=== PATIENT | female | born 1960 | race African-American/Black ===

== ENCOUNTER 2018-01-22 14:49 | Inpatient (IN) | payer OTHER ==
[2018-01-22 17:25] VITALS: BMI 24.7
--- NOTE | 2018-01-23 00:21 | HP ---
COWS - Scale Resting Pulse: 0= [place] 80 or Below Sweatin=Flushed/Facial Moisture Restless Observation: 0= Sits Still Pupil Size: 0= Normal to Room Light Bone or Joint Aches: 4=Acute Joint/Muscle Pain Runny Nose/ Eye Tearin= Runny Nose/Eyes GI Upset > 30mins: 1= Stomach Cramp Tremor Observation: 2= Slight Tremor Visible Yawning Observation: 0= None Anxiety or Irritability: 2=Irritable/Anxious Goose Flesh Skin: 0=Smooth Skin COWS Score: 13 CIWA Score - CIWA Score Nausea/Vomitin-Mild Nausea/No Vomiting Muscle Tremors: 4-Moderate,w/Arms Extend Anxiety: 4-Mod. Anxious/Guarded Agitation: 4-Moderately Restless Paroxysmal Sweats: No Perspiration Orientation: 0-Oriented Tacttile Disturbances: 0-None Auditory Disturbances: 0-None Visual Disturbances: 0-None Headache: 3-Moderate CIWA-Ar Total Score: 16 Admission ROS S - HPI Chief Complaint: Alcohol withdrawal symptoms Allergies/Adverse Reactions: Allergies Allergy/AdvReac Type Severity Reaction Status Date / Time No Known Allergies Allergy Verified 01/22/18 18:32 History of Present Illness: 57 years old female with a long history of alcohol dependence is seeking admission to detox. Patient has never been to detox and this is her first admission to [facility]. She has medical history of HTN, asthma and depression. Denies suicidal attempt and suicidal ideation at this time. Exam Limitations: No Limitations - Ebola screening Have you traveled outside of the country in the last 21 days: No Have you had contact with anyone from an Ebola affected area: No Have you been sick,other than usual withdrawal symptoms: No Do you have a fever: No - Review of Systems Constitutional: Chills, Loss of Appetite, Malaise, Night Sweats, Changes in sleep, Weakness EENT: reports: No Symptoms Reported Respiratory: reports: No Symptoms reported Cardiac: reports: No Symptoms Reported GI: reports: Poor Appetite, Poor Fluid Intake, Abdominal cramping : reports: No Symptoms Reported Musculoskeletal: reports: Back Pain, Muscle Pain Integumentary: reports: Dryness, Flushing Neuro: reports: Tingling, Tremors Endocrine: reports: No Symptoms Reported Hematology: reports: No Symptoms Reported Psychiatric: reports: Anxious, Depressed Patient History - Patient Medical History Hx Asthma: Yes (Not on medication) Hx Chronic Obstructive Pulmonary Disease (COPD): No Hx Cardiac Disorders: No Hx Hypertension: Yes (Not on medication) Hx Seizures: Yes (20 YEARS AGO 2 EPISODES- Not on medication) Hx Dementia: Yes Hx Diabetes: No Hx Gastrointestinal Disorders: No Hx Liver Disease: No Hx Genitourinary Disorders: No Hx Sexually Transmitted Disorders: No Hx Renal Disease (ESRD): No Hx Thyroid Disease: No Hx Human Immunodeficiency Virus (HIV): No Hx Hepatitis C: No Hx Depression: Yes Hx Suicide Attempt: No Hx Bipolar Disorder: No Hx Schizophrenia: No - Patient Surgical History Past Surgical History: No Hx Neurologic Surgery: No Hx Cataract Extraction: No Hx Cardiac Surgery: No Hx Lung Surgery: No Hx Breast Surgery: No Hx Breast Biopsy: No Hx Abdominal Surgery: Yes (HERNIA REPAIR 20YRS AGO) Hx Appendectomy: No Hx Cholecystectomy: No Hx Genitourinary Surgery: No Hx Section: No Hx Orthopedic Surgery: No Anesthesia Reaction: No - PPD History Previous Implant?: Yes Documented Results: Negative w/o proof Implanted On Prior R Admission?: No PPD to be Administered?: Yes - Reproductive History Patient is a Female of Child Bearing Age (11 -55 yrs old): No (Male) Last Menstrual Period: 09/24/15 Patient : No - Smoking Cessation Smoking history: Current every day smoker Have you smoked in the past 12 months: Yes Aproximately how many cigarettes per day: 2 Hx Chewing Tobacco Use: No Initiated information on smoking cessation: Yes 'Breaking Loose' booklet given: 01/23/18 - Substance & Tx. History Hx Alcohol Use: Yes Hx Substance Use: Yes Substance Use Type: Alcohol, Cocaine, Marijuana, Opiates Hx Substance Use Treatment: No (Denies) - Substances Abused Alcohol Route: Oral Frequency: Daily Amount used: 6pk beer, 1/4 pInt Liquer Age of first use: 20 Date of Last Use: 01/21/18 Crack Route: Smoking Frequency: 3-6 times per week Amount used: $100 Age of first use: 32 Date of Last Use: 01/17/18 Heroin Route: Inhalation Frequency: 1-2 times per week Amount used: 2 bags Age of first use: 37 Date of Last Use: 01/19/18 Family Disease History - Family Disease History Family History: Denies Admission Physical Exam BHS - Vital Signs Vital Signs: Vital Signs - 24 hr 01/22/18 17:22 Temperature 97.9 F Pulse Rate 71 Respiratory 20 Rate Blood Pressure 155/96 - Physical General Appearance: Yes: Moderate Distress, Tremorous, Irritable, Anxious HEENTM: Yes: EOMI, Normal ENT Inspection, Normocephalic, Normal Voice, PABLITO Respiratory: Yes: Lungs Clear, Normal Breath Sounds, No Respiratory Distress Neck: Yes: Supple Breast: Yes: Breast Exam Deferred Cardiology: Yes: Regular Rhythm, Regular Rate, S1, S2 Abdominal: Yes: Normal Bowel Sounds, Soft Genitourinary: Yes: Within Normal Limits Back: Yes: Normal Inspection Musculoskeletal: Yes: Back pain, Muscle Pain Extremities: Yes: Tremors Neurological: Yes: Alert, Normal Mood/Affect Integumentary: Yes: Dry Lymphatic: Yes: Within Normal Limits - Diagnostic (1) Alcohol dependence with uncomplicated withdrawal Current Visit: Yes Status: Chronic (2) Cocaine dependence, uncomplicated Current Visit: Yes Status: Chronic (3) Cannabis dependence, uncomplicated Current Visit: Yes Status: Chronic (4) HTN (hypertension) Current Visit: Yes Status: Chronic Qualifiers: Hypertension type: unspecified Qualified Code(s): I10 - Essential (primary ) hypertension (5) Seizure Current Visit: Yes Status: Chronic (6) Depression Current Visit: Yes Status: Chronic (7) Asthma Current Visit: Yes Status: Acute BHS Breath Alcohol Content Breath Alcohol Content: 0 Urine Pregancy Test - Result Urine Test Results: Negative- NO Line Present Urine Drug Screen - Results Drug Screen Negative: No Urine Drug Screen Results: THC-Marijuana, EBONIE-Cocaine, OPI-Opiates, MTD- Methadone
[2018-01-23] MEDS ORDERED: LOPERAMIDE HCL 2 MG CAPSULE PO PRN (00:39)
[2018-01-23] MEDS ORDERED: guaiFENesin/D-METHORPHAN HB 10 ML UNIT-DOSE CUPS PO PRN (00:39)
[2018-01-23] MEDS ORDERED: NICOTINE POLACRILEX 2 MG GUM BC PRN (00:39)
[2018-01-23] MEDS ORDERED: ACETAMINOPHEN 325 MG TABLET (FP) PO PRN (00:39)
[2018-01-23] MEDS ORDERED: MENTHOL/PHENOL 1 EACH UD MM PRN (00:39)
[2018-01-23] MEDS ORDERED: MAG HYDROX/AL HYDROX/SIMETH 30 ML UNIT-DOSE CUP PO PRN (00:39)
[2018-01-23] MEDS ORDERED: P-EPHED 60MG/TRIPROLIDI 2.5MG TABLET PO PRN (00:39)
[2018-01-23] MEDS ORDERED: IBUPROFEN 400 MG TABLET (FP) PO PRN (00:39)
[2018-01-23] MEDS ORDERED: MAGNESIUM CITRATE 300 ML BOTTLE PO PRN (00:39)
[2018-01-23] MEDS ORDERED: MAGNESIUM HYDROX 2400MG/30ML ORAL SUSPENSION 30 ML CUP PO PRN (00:39)
[2018-01-23] MEDS ORDERED: ALBUTEROL SO4 18 GM HFA INHALER IH PRN (00:41)
[2018-01-23] MEDS ORDERED: cloNIDine HCL 0.1 MG TABLET PO ONE (01:22)
[2018-01-23] MEDS: chlordiazePOXIDE HCL 25 MG CAPSULE PO PRN (01:36)
[2018-01-23] MEDS: chlordiazePOXIDE HCL 25 MG CAPSULE PO SCH ×4 (06:47→22:40)
--- NOTE | 2018-01-23 08:47 | EKG ---
Test Reason : Blood Pressure : / mmHG Vent. Rate : 056 BPM Atrial Rate : 056 BPM P-R Int : 124 ms QRS Dur : 084 ms QT Int : 494 ms P-R-T Axes : 069 066 073 degrees QTc Int : 476 ms SINUS BRADYCARDIA WITH SINUS ARRHYTHMIA OTHERWISE NORMAL ECG NO PREVIOUS ECGS AVAILABLE Confirmed by JESSICA LOPEZ, EVELYNE ([id number]) on 01/23/2018 8:46:45 AM Referred By: Confirmed By:EVELYNE LOPEZ MD
[2018-01-23 10:11] LABS: HEMATOCRIT 35.4 % (32.4-45.2); HEMOGLOBIN 11.7 GM/dL (10.7-15.3); MCH 34.1 pg (25.7-33.7); MEAN CELL VOLUME 103.5 fl (80-96); MEAN PLT VOLUME 11.9 fl (7.5-11.1); PLATELET COUNT 141 K/MM3 (134-434); RBC 3.42 M/mm3 (3.60-5.2); RDW 13.2 % (11.6-15.6); WHITE BLOOD COUNT 3.3 K/mm3 (4.0-10.0)
[2018-01-23 10:31] LABS: CHLORIDE 108 mmol/L (98-107); POTASSIUM 4.3 mmol/L (3.5-5.1); SODIUM 142 mmol/L (136-145)
[2018-01-23 10:49] LABS: ALBUMIN 2.6 g/dl (3.4-5.0); ALK PHOS 156 U/L (45-117); ANION GAP 5 (8-16); BILIRUBIN,TOTAL 0.9 mg/dL (0.2-1.0); BLOOD UREA NITROGEN 16 mg/dL (7-18); CALCIUM 8.5 mg/dL (8.5-10.1); CO2 29 mmol/L (21-32); CREATININE 0.9 mg/dL (0.55-1.02); GLUCOSE,RANDOM 90 mg/dL (74-106); SGOT/AST 169 U/L (15-37); SGPT/ALT 98 U/L (12-78); TOT PROT 7.1 g/dl (6.4-8.2)
[2018-01-23] MEDS: NICOTINE 14 MG/24 HOURS TOPICAL PATCH TD SCH (12:43)
[2018-01-23] MEDS: PRENATAL VITAMINS W/ FOLIC ACID TABLET (FP) PO SCH (12:44)
--- NOTE | 2018-01-23 13:38 | PN ---
S CIWA - CIWA Score Nausea/Vomitin Muscle Tremors: 3 Anxiety: 3 Agitation: 2 Paroxysmal Sweats: 1-Minimal Palms Moist Orientation: 0-Oriented Tacttile Disturbances: 1-Very Mild Itch/Numbness Auditory Disturbances: 1-Very Mild Visual Disturbances: 0-None Headache: 2-Mild CIWA-Ar Total Score: 16 S Progress Note (SOAP) Subjective: ALERT,IRRITABLE,ANXIOUS,INTERRUPTED SLEEP,TREMOR Objective: 01/23/18 13:34 Vital Signs Temperature 97.1 F L 01/23/18 09:28 Pulse Rate 81 01/23/18 09:28 Respiratory Rate 16 01/23/18 09:28 Blood Pressure 101/61 01/23/18 09:28 O2 Sat by Pulse Oximetry (%) EKG SINUS BRADYCARDIA 56/MIN QT 494/476 NO CHEST PAIN,NO SOB,NO DIZZINESS Laboratory Last Values WBC 3.3 K/mm3 (4.0-10.0) L 01/23/18 07:50 RBC 3.42 M/mm3 (3.60-5.2) L 01/23/18 07:50 Hgb 11.7 GM/dL (10.7-15.3) 01/23/18 07:50 Hct 35.4 % (32.4-45.2) 01/23/18 07:50 MCV 103.5 fl (80-96) H 01/23/18 07:50 MCH 34.1 pg (25.7-33.7) H 01/23/18 07:50 MCHC 33.0 g/dl (32.0-36.0) 01/23/18 07:50 RDW 13.2 % (11.6-15.6) 01/23/18 07:50 Plt Count 141 K/MM3 (134-434) 01/23/18 07:50 MPV 11.9 fl (7.5-11.1) H 01/23/18 07:50 Sodium 142 mmol/L (136-145) 01/23/18 07:50 Potassium 4.3 mmol/L (3.5-5.1) 01/23/18 07:50 Chloride 108 mmol/L (98-107) H 01/23/18 07:50 Carbon Dioxide 29 mmol/L (21-32) 01/23/18 07:50 Anion Gap 5 (8-16) L 01/23/18 07:50 BUN 16 mg/dL (7-18) 01/23/18 07:50 Creatinine 0.9 mg/dL (0.55-1.02) 01/23/18 07:50 Creat Clearance w eGFR > 60 (>60) 01/23/18 07:50 Random Glucose 90 mg/dL (74-106) 01/23/18 07:50 Calcium 8.5 mg/dL (8.5-10.1) 01/23/18 07:50 Total Bilirubin 0.9 mg/dL (0.2-1.0) 01/23/18 07:50 AST 169 U/L (15-37) H 01/23/18 07:50 ALT 98 U/L (12-78) H 01/23/18 07:50 Alkaline Phosphatase 156 U/L (45-117) H 01/23/18 07:50 Total Protein 7.1 g/dl (6.4-8.2) 01/23/18 07:50 Albumin 2.6 g/dl (3.4-5.0) L 01/23/18 07:50 RPR Titer Nonreactive (NONREACTIVE) 01/23/18 07:50 Assessment: 01/23/18 13:36 WITHDRAWAL SYMPTOM Plan: CONTINUE DETOX,D/C TYLENOL FOR ELEVATION OF ALT AST
[2018-01-23] MEDS ORDERED: MELATONIN 5 MG TABLETS PO PRN (22:00)
[2018-01-23] MEDS: THIAMINE HCL 100 MG TABLET (FP) PO SCH (22:40)
[2018-01-24] MEDS: chlordiazePOXIDE HCL 25 MG CAPSULE PO SCH ×4 (05:48→22:20)
--- NOTE | 2018-01-24 08:36 | PN ---
S CIWA - CIWA Score Nausea/Vomitin Muscle Tremors: 3 Anxiety: 3 Agitation: 2 Paroxysmal Sweats: 1-Minimal Palms Moist Orientation: 0-Oriented Tacttile Disturbances: 1-Very Mild Itch/Numbness Auditory Disturbances: 1-Very Mild Visual Disturbances: 0-None Headache: 2-Mild CIWA-Ar Total Score: 16 BHS Progress Note (SOAP) Subjective: alert,irritable,anxious,interrupted sleep,pain in the body and back Objective: 01/24/18 08:31 Vital Signs Temperature 97.7 F 01/24/18 07:56 Pulse Rate 59 L 01/24/18 07:56 Respiratory Rate 20 01/24/18 07:56 Blood Pressure 141/89 01/24/18 07:56 O2 Sat by Pulse Oximetry (%) Laboratory Last Values WBC 3.3 K/mm3 (4.0-10.0) L 01/23/18 07:50 RBC 3.42 M/mm3 (3.60-5.2) L 01/23/18 07:50 Hgb 11.7 GM/dL (10.7-15.3) 01/23/18 07:50 Hct 35.4 % (32.4-45.2) 01/23/18 07:50 MCV 103.5 fl (80-96) H 01/23/18 07:50 MCH 34.1 pg (25.7-33.7) H 01/23/18 07:50 MCHC 33.0 g/dl (32.0-36.0) 01/23/18 07:50 RDW 13.2 % (11.6-15.6) 01/23/18 07:50 Plt Count 141 K/MM3 (134-434) 01/23/18 07:50 MPV 11.9 fl (7.5-11.1) H 01/23/18 07:50 Sodium 142 mmol/L (136-145) 01/23/18 07:50 Potassium 4.3 mmol/L (3.5-5.1) 01/23/18 07:50 Chloride 108 mmol/L (98-107) H 01/23/18 07:50 Carbon Dioxide 29 mmol/L (21-32) 01/23/18 07:50 Anion Gap 5 (8-16) L 01/23/18 07:50 BUN 16 mg/dL (7-18) 01/23/18 07:50 Creatinine 0.9 mg/dL (0.55-1.02) 01/23/18 07:50 Creat Clearance w eGFR > 60 (>60) 01/23/18 07:50 Random Glucose 90 mg/dL (74-106) 01/23/18 07:50 Calcium 8.5 mg/dL (8.5-10.1) 01/23/18 07:50 Total Bilirubin 0.9 mg/dL (0.2-1.0) 01/23/18 07:50 AST 169 U/L (15-37) H 01/23/18 07:50 ALT 98 U/L (12-78) H 01/23/18 07:50 Alkaline Phosphatase 156 U/L (45-117) H 01/23/18 07:50 Total Protein 7.1 g/dl (6.4-8.2) 01/23/18 07:50 Albumin 2.6 g/dl (3.4-5.0) L 01/23/18 07:50 RPR Titer Nonreactive (NONREACTIVE) 01/23/18 07:50 Assessment: 01/24/18 08:32 withdrawal symptom unable to verify methadone dose for her program Plan: continue detox,will give methadone 20 mgs po today and 20 mgs po on thu01/25/18 ,to verify with her program on 01/26/18
[2018-01-24] MEDS ORDERED: METHADONE HCL 10 MG TABLET PO ONE (08:37)
[2018-01-24] MEDS: PRENATAL VITAMINS W/ FOLIC ACID TABLET (FP) PO SCH (10:23)
[2018-01-24] MEDS: chlordiazePOXIDE HCL 25 MG CAPSULE PO PRN (10:24)
[2018-01-24] MEDS: NICOTINE 14 MG/24 HOURS TOPICAL PATCH TD SCH (10:26)
[2018-01-24] MEDS: THIAMINE HCL 100 MG TABLET (FP) PO SCH (22:20)
[2018-01-25] MEDS ORDERED: METHADONE HCL 10 MG TABLET PO ONE (06:00)
[2018-01-25] MEDS: chlordiazePOXIDE 5 MG CAPSULE PO SCH ×4 (06:18→22:16)
[2018-01-25] MEDS: PRENATAL VITAMINS W/ FOLIC ACID TABLET (FP) PO SCH (10:36)
[2018-01-25] MEDS: NICOTINE 14 MG/24 HOURS TOPICAL PATCH TD SCH (10:36)
--- NOTE | 2018-01-25 13:50 | PN ---
S Progress Note (SOAP) Subjective: ALERT,IRRITABLE,ANXIOUS,INTERRUPTED SLEEP Objective: 01/25/18 13:48 Vital Signs Temperature 97.7 F 01/25/18 09:37 Pulse Rate 58 L 01/25/18 09:37 Respiratory Rate 18 01/25/18 09:37 Blood Pressure 112/60 01/25/18 09:37 O2 Sat by Pulse Oximetry (%) Assessment: 01/25/18 13:49 WITHDRAWAL SYMPTOM Plan: CONTINUE DETOX,DISCHARGE IN AM
[2018-01-25 21:45] VITALS: TEMP 98.1
[2018-01-25] MEDS: THIAMINE HCL 100 MG TABLET (FP) PO SCH (22:16)
[2018-01-26] MEDS ORDERED: chlordiazePOXIDE HCL 10 MG CAPSULE PO SCH (05:00)
[2018-01-26 06:07] VITALS: BP 154/72; PULSE 77
[2018-01-26] MEDS ORDERED: METHADONE HCL 10 MG TABLET PO ONE (08:18)
[2018-01-26] MEDS ORDERED: METHADONE 30 MG, METHADONE 5 MG PO ONE (08:30)
[2018-01-26] MEDS ORDERED: METHADONE HCL 5 MG TABLET ONE (08:39)
[2018-01-26] MEDS ORDERED: METHADONE HCL 10 MG TABLET ONE (08:39)
--- NOTE | 2018-01-26 08:51 | DS ---
[facility] Detox Discharge Summary Admission Date: 01/22/18 Discharge Date: 01/26/18 - History Present History: Alcohol Dependence Additional Comments: 57 years old female admitted 01/22/18 for alcohol withdrawal sx completed alcohol detox regimen tolerated well denies alcohol withdrawal sx alert oriented x 3 methadone verified today on 35 mg po daily agrees [facility] teaching on alcohol related liver diseases - Physical Exam Results Vital Signs: Vital Signs Temperature 98.1 F 01/26/18 06:00 Pulse Rate 77 01/26/18 06:00 Respiratory Rate 18 01/26/18 06:00 Blood Pressure 154/72 01/26/18 06:00 O2 Sat by Pulse Oximetry (%) Pertinent Admission Physical Exam Findings: withdrawal sx Vital Signs Temperature 98.1 F 01/26/18 06:00 Pulse Rate 77 01/26/18 06:00 Respiratory Rate 18 01/26/18 06:00 Blood Pressure 154/72 01/26/18 06:00 O2 Sat by Pulse Oximetry (%) Laboratory Last Values WBC 3.3 K/mm3 (4.0-10.0) L 01/23/18 07:50 RBC 3.42 M/mm3 (3.60-5.2) L 01/23/18 07:50 Hgb 11.7 GM/dL (10.7-15.3) 01/23/18 07:50 Hct 35.4 % (32.4-45.2) 01/23/18 07:50 MCV 103.5 fl (80-96) H 01/23/18 07:50 MCH 34.1 pg (25.7-33.7) H 01/23/18 07:50 MCHC 33.0 g/dl (32.0-36.0) 01/23/18 07:50 RDW 13.2 % (11.6-15.6) 01/23/18 07:50 Plt Count 141 K/MM3 (134-434) 01/23/18 07:50 MPV 11.9 fl (7.5-11.1) H 01/23/18 07:50 Sodium 142 mmol/L (136-145) 01/23/18 07:50 Potassium 4.3 mmol/L (3.5-5.1) 01/23/18 07:50 Chloride 108 mmol/L (98-107) H 01/23/18 07:50 Carbon Dioxide 29 mmol/L (21-32) 01/23/18 07:50 Anion Gap 5 (8-16) L 01/23/18 07:50 BUN 16 mg/dL (7-18) 01/23/18 07:50 Creatinine 0.9 mg/dL (0.55-1.02) 01/23/18 07:50 Creat Clearance w eGFR > 60 (>60) 01/23/18 07:50 Random Glucose 90 mg/dL (74-106) 01/23/18 07:50 Calcium 8.5 mg/dL (8.5-10.1) 01/23/18 07:50 Total Bilirubin 0.9 mg/dL (0.2-1.0) 01/23/18 07:50 AST 169 U/L (15-37) H 01/23/18 07:50 ALT 98 U/L (12-78) H 01/23/18 07:50 Alkaline Phosphatase 156 U/L (45-117) H 01/23/18 07:50 Total Protein 7.1 g/dl (6.4-8.2) 01/23/18 07:50 Albumin 2.6 g/dl (3.4-5.0) L 01/23/18 07:50 RPR Titer Nonreactive (NONREACTIVE) 01/23/18 07:50 lab noted AST and ALT elevation - Treatment Hospital Course: Detox Protocol Followed, Detoxed Safely, Responded well, Discharged Condition Good, Rehab Referral Accepted Patient has Accepted [facility] Referral [facility] - Medication Discharge Medications: Ambulatory Orders Clonidine HCl 0.3 mg PO DAILY 01/22/18 Albuterol Sulfate Inhaler - [Ventolin HFA Inhaler -] 2 puff IH PRN PRN #1 inhaler 01/26/18 Methadone [Dolophine -] 35 mg PO DAILY 01/26/18 - Diagnosis (1) Asthma Status: Chronic Qualifiers: Asthma severity: mild Asthma persistence: intermittent Asthma complication type: with status asthmaticus Qualified Code(s): J45.22 - Mild intermittent asthma with status asthmaticus (2) Methadone maintenance therapy patient Status: Chronic (3) Alcohol dependence with uncomplicated withdrawal Status: Acute (4) HTN (hypertension) Status: Chronic Qualifiers: Hypertension type: essential hypertension Qualified Code(s): I10 - Essential (primary) hypertension - AMA Did Patient Leave Against Medical Advice: No
[2018-01-26] MEDS ORDERED: cloNIDine HCL 0.1 MG TABLET PO PRN (09:02)
[2018-01-26] MEDS: NICOTINE 14 MG/24 HOURS TOPICAL PATCH TD SCH (09:46)
[2018-01-26] MEDS: PRENATAL VITAMINS W/ FOLIC ACID TABLET (FP) PO SCH (09:46)
[2018-01-26 14:17] LABS: URINE APPEARANCE SLCLOUDY; URINE BILIRUBIN NEGATIVE (<2.0 mg/dL); URINE COLOR YELLOW; URINE GLUCOSE (UA) NEGATIVE (NEGATIVE); URINE KETONE NEGATIVE (NEGATIVE); URINE LEUK ESTERASE NEGATIVE (NEGATIVE); URINE NITRITE NEGATIVE (NEGATIVE); URINE PROTEIN NEGATIVE (NEGATIVE)
== END 2018-01-26 09:50 | disposition home or self-care (01) | DRG 773 ==
LOC: YASAS 14:49 → Y6N 23:33
PROVIDERS: ADMIT Surgery; ATTEND Surgery
PROC: HZ2ZZZZ Detoxification Services for Substance Abuse Treatment (ICD-10-PCS; principal; 2018-01-22)
DX: F11.20 Opioid dependence, uncomplicated (principal); F10.230 Alcohol dependence with withdrawal, uncomplicated; F14.20 Cocaine dependence, uncomplicated; F12.20 Cannabis dependence, uncomplicated; F32.9 Major depressive disorder, single episode, unspecified; I10 Essential (primary) hypertension; J45.22 Mild intermittent asthma with status asthmaticus; Z86.69 Personal history of other diseases of the nervous system and sense organs
CPT/HCPCS: 36415; 71046-TC-FY; 80053; 81003; 85027; 86593; 93005; 93010; J0735

== ENCOUNTER 2018-09-21 17:41 | Inpatient (IN) | payer OTHER ==
[2018-09-21 19:09] VITALS: BMI 23.4
--- NOTE | 2018-09-21 20:34 | HP ---
COWS - Scale Resting Pulse: 0= [place] 80 or Below Sweatin=Flushed/Facial Moisture Restless Observation: 0= Sits Still Pupil Size: 0= Normal to Room Light Bone or Joint Aches: 4=Acute Joint/Muscle Pain Runny Nose/ Eye Tearin= Runny Nose/Eyes GI Upset > 30mins: 3= Vomiting/Diarrhea (vomiting x 2, diarrhea x 3) Tremor Observation: 2= Slight Tremor Visible Yawning Observation: 0= None Anxiety or Irritability: 2=Irritable/Anxious Goose Flesh Skin: 0=Smooth Skin COWS Score: 15 CIWA Score Nausea/Vomitin (vomiting x 2) Muscle Tremors: 3 Anxiety: 3 Agitation: 3 Paroxysmal Sweats: 2 Orientation: 0-Oriented Tacttile Disturbances: 0-None Auditory Disturbances: 0-None Visual Disturbances: 0-None Headache: 2-Mild CIWA-Ar Total Score: 16 - Admission Criteria [facility] Guidelines: Admission for Medically Managed Detox: Requires at least one of the followin. CIWA greater than 12 2. Seizures within the past 24 hours 3. Delirium tremens within the past 24 hours 4. Hallucinations within the past 24 hours 5. Acute intervention needed for co occurring medical disorder 6. Acute intervention needed for co occurring psychiatric disorder 7. Severe withdrawal that cannot be handled at a lower level of care (continued vomiting, continued diarrhea, abnormal vital signs) requiring intravenous medication and/or fluids 8. Admission ROS [facility] Chief Complaint: Heroin and alcohol withdrawal symptoms Allergies/Adverse Reactions: Allergies Allergy/AdvReac Type Severity Reaction Status Date / Time No Known Allergies Allergy Verified 01/22/18 18:32 History of Present Illness: 58 years old female with a long history of heroine and alcohol dependence is seeking admission to detox. Patient has been to previous detox at [facility]. She has medical history of hypertension, asthma and depression. She denies suicide attempt and suicidal ideation at this time. Patient reports seven years of sobriety. Exam Limitations: No Limitations - Ebola screening Have you traveled outside of the country in the last 21 days: No Have you had contact with anyone from an Ebola affected area: No Have you been sick,other than usual withdrawal symptoms: No Do you have a fever: No - Review of Systems Constitutional: Chills, Loss of Appetite, Malaise, Changes in sleep EENT: reports: Recent change in vision, Sinus Pressure Respiratory: reports: No Symptoms reported Cardiac: reports: No Symptoms Reported GI: reports: Diarrhea (x 3), Nausea, Poor Appetite, Poor Fluid Intake, Vomiting (x 2), Abdominal cramping : reports: No Symptoms Reported Musculoskeletal: reports: Back Pain, Joint Pain, Muscle Pain Integumentary: reports: Dryness, Flushing Neuro: reports: Headache, Tremors Hematology: reports: No Symptoms Reported Psychiatric: reports: Mood/Affect Appropiate, Orientated x3 Other Systems: Reviewed and Negative Patient History - Patient Medical History Hx Asthma: Yes (Not on medication) Hx Chronic Obstructive Pulmonary Disease (COPD): No Hx Cardiac Disorders: No Hx Hypertension: Yes (Not on medication) Hx Seizures: Yes (20 YEARS AGO 2 EPISODES- Not on medication) Hx Dementia: No Hx Diabetes: No Hx Gastrointestinal Disorders: No Hx Liver Disease: No Hx Genitourinary Disorders: No Hx Sexually Transmitted Disorders: No Hx Renal Disease (ESRD): No Hx Thyroid Disease: No Hx Human Immunodeficiency Virus (HIV): No Hx Hepatitis C: No Hx Depression: Yes (Not on medication) Hx Suicide Attempt: No Hx Bipolar Disorder: No Hx Schizophrenia: No - Patient Surgical History Past Surgical History: No Hx Neurologic Surgery: No Hx Cataract Extraction: No Hx Cardiac Surgery: No Hx Lung Surgery: No Hx Breast Surgery: No Hx Breast Biopsy: No Hx Abdominal Surgery: Yes (HERNIA REPAIR 20YRS AGO) Hx Appendectomy: No Hx Cholecystectomy: No Hx Genitourinary Surgery: No Hx Section: No Hx Orthopedic Surgery: No Anesthesia Reaction: No - PPD History Previous Implant?: Yes Documented Results: Negative w/o proof Implanted On Prior [facility] Admission?: No PPD to be Administered?: Yes - Reproductive History Patient is a Female of Child Bearing Age (11 -55 yrs old): Yes Last Menstrual Period: 09/24/15 LMP comment: Menopausal Patient : No - Smoking Cessation Smoking history: Current every day smoker Have you smoked in the past 12 months: Yes Aproximately how many cigarettes per day: 2 Hx Chewing Tobacco Use: No Initiated information on smoking cessation: Yes 'Breaking Loose' booklet given: 09/21/18 - Substance & Tx. History Hx Alcohol Use: No Hx Substance Use: Yes Substance Use Type: Heroin Hx Substance Use Treatment: Yes ([facility]) - Substances Abused Heroin Route: Inhalation Frequency: Daily Amount used: 5 bags daily Age of first use: 27 Date of Last Use: 09/20/18 Cocaine Route: Smoking Frequency: Daily Amount used: $10 Age of first use: 35 Date of Last Use: 09/20/18 Alcohol Route: Oral Frequency: Daily Amount used: Aniyah - 2 Lou Age of first use: 13 Date of Last Use: 09/21/18 Family Disease History - Family Disease History Family History: Denies Admission Physical Exam [facility] - Vital Signs Vital Signs: Vital Signs - 24 hr 09/21/18 19:05 Temperature 97.8 F Pulse Rate 72 Respiratory 18 Rate Blood Pressure 150/90 - Physical General Appearance: Yes: Moderate Distress, Tremorous, Irritable, Sweating, Anxious HEENTM: Yes: Nasal Congestion Respiratory: Yes: Lungs Clear, Normal Breath Sounds, No Respiratory Distress Neck: Yes: Supple Breast: Yes: Breast Exam Deferred Cardiology: Yes: Regular Rhythm, Regular Rate Abdominal: Yes: Within Normal Limits Genitourinary: Yes: Within Normal Limits Musculoskeletal: Yes: Back pain Extremities: Yes: Tremors Neurological: Yes: operations developer II-XII NML intact, Alert, Normal Mood/Affect Integumentary: Yes: Warm Lymphatic: Yes: Within Normal Limits - Diagnostic (1) Alcohol dependence with uncomplicated withdrawal Current Visit: Yes Status: Chronic (2) Asthma Current Visit: Yes Status: Chronic Qualifiers: Asthma severity: mild Asthma persistence: intermittent Asthma complication type: with status asthmaticus Qualified Code(s): J45.22 - Mild intermittent asthma with status asthmaticus (3) Cannabis dependence, uncomplicated Current Visit: Yes Status: Chronic (4) Cocaine dependence, uncomplicated Current Visit: Yes Status: Chronic (5) Depression Current Visit: Yes Status: Chronic Qualifiers: Depression Type: unspecified Qualified Code(s): F32.9 - Major depressive disorder, single episode, unspecified (6) HTN (hypertension) Current Visit: Yes Status: Chronic Qualifiers: Hypertension type: essential hypertension Qualified Code(s): I10 - Essential (primary) hypertension Cleared for Admission [facility] - Detox or Rehab [facility] Level of Care: Medically Managed Detox Regimen/Protocol: Methadone/Librium [facility] Breath Alcohol Content Breath Alcohol Content: 0.021 Urine Pregancy Test - Result Urine Test Results: Negative- NO Line Present Urine Drug Screen - Results Urine Drug Screen Results: THC-Marijuana, EBONIE-Cocaine, OPI-Opiates, FEN-Fentanyl
[2018-09-21] MEDS ORDERED: MAGNESIUM HYDROX 2400MG/30ML ORAL SUSPENSION 30 ML CUP PO PRN (20:47)
[2018-09-21] MEDS ORDERED: IBUPROFEN 400 MG TABLET (FP) PO PRN (20:47)
[2018-09-21] MEDS ORDERED: MAG HYDROX/AL HYDROX/SIMETH 30 ML UNIT-DOSE CUP PO PRN (20:47)
[2018-09-21] MEDS ORDERED: METHADONE HCL 10 MG TABLET (FOR DETOX USE ONLY) PO ONE ×4 (20:47→23:00)
[2018-09-21] MEDS ORDERED: guaiFENesin/D-METHORPHAN HB 10 ML UNIT-DOSE CUPS PO PRN (20:47)
[2018-09-21] MEDS ORDERED: NICOTINE POLACRILEX 2 MG GUM BC PRN (20:47)
[2018-09-21] MEDS ORDERED: diazePAM 5 MG TABLET PO PRN (20:47)
[2018-09-21] MEDS ORDERED: ACETAMINOPHEN 325 MG TABLET (FP) PO PRN (20:47)
[2018-09-21] MEDS ORDERED: P-EPHED 60MG/TRIPROLIDI 2.5MG TABLET PO PRN (20:47)
[2018-09-21] MEDS ORDERED: LOPERAMIDE HCL 2 MG CAPSULE PO PRN (20:47)
[2018-09-21] MEDS ORDERED: MAGNESIUM CITRATE 300 ML BOTTLE PO PRN (20:47)
[2018-09-21] MEDS ORDERED: MENTHOL/PHENOL 1 EACH UD MM PRN (20:47)
[2018-09-21] MEDS ORDERED: ALBUTEROL SO4 8 GM HFA INHALER IH PRN (20:49)
[2018-09-21] MEDS ORDERED: chlordiazePOXIDE HCL 25 MG CAPSULE PO PRN (21:44)
[2018-09-21] MEDS ORDERED: MELATONIN 5 MG TABLETS PO PRN (22:00)
[2018-09-21] MEDS: chlordiazePOXIDE HCL 25 MG CAPSULE PO SCH (23:17)
[2018-09-21] MEDS: THIAMINE HCL 100 MG TABLET (FP) PO SCH (23:22)
[2018-09-22] MEDS: chlordiazePOXIDE HCL 25 MG CAPSULE PO SCH ×3 (06:36→17:15)
[2018-09-22] MEDS ORDERED: METHADONE HCL 10 MG TABLET (FOR DETOX USE ONLY) PO SCH (10:00)
[2018-09-22] MEDS ORDERED: NICOTINE 14 MG/24 HOURS TOPICAL PATCH TD SCH (10:00)
[2018-09-22] MEDS ORDERED: PRENATAL VITAMINS W/ FOLIC ACID TABLET (FP) PO SCH (10:00)
[2018-09-22] MEDS ORDERED: METHADONE HCL 10 MG TABLET (FOR DETOX USE ONLY) PO ONE (10:00)
[2018-09-22 10:34] LABS: HEMATOCRIT 32.7 % (32.4-45.2); HEMOGLOBIN 11.3 GM/dL (10.7-15.3); MCH 34.6 pg (25.7-33.7); MCHC 34.5 g/dl (32.0-36.0); MEAN CELL VOLUME 100.2 fl (80-96); MEAN PLT VOLUME 10.4 fl (7.5-11.1); PLATELET COUNT 214 K/MM3 (134-434); RBC 3.27 M/mm3 (3.60-5.2); RDW 12.3 % (11.6-15.6); WHITE BLOOD COUNT 3.3 K/mm3 (4.0-10.0)
[2018-09-22 10:49] LABS: ALBUMIN 2.5 g/dl (3.4-5.0); ALK PHOS 117 U/L (45-117); ANION GAP 7 MMOL/L (8-16); BILIRUBIN,TOTAL 0.3 mg/dL (0.2-1); BLOOD UREA NITROGEN 12 mg/dL (7-18); CALCIUM 8.6 mg/dL (8.5-10.1); CHLORIDE 108 mmol/L (98-107); CO2 28 mmol/L (21-32); CREATININE 0.7 mg/dL (0.55-1.3); GLUCOSE,RANDOM 90 mg/dL (74-106); POTASSIUM 3.7 mmol/L (3.5-5.1); SGOT/AST 65 U/L (15-37); SGPT/ALT 50 U/L (13-61); SODIUM 143 mmol/L (136-145); TOT PROT 6.4 g/dl (6.4-8.2)
--- NOTE | 2018-09-22 15:43 | PN ---
[facility] CIWA - CIWA Score Nausea/Vomitin-No Nausea/No Vomiting Muscle Tremors: 4-Moderate,w/Arms Extend Anxiety: 3 Agitation: 3 Paroxysmal Sweats: 3 Orientation: 0-Oriented Tacttile Disturbances: 0-None Auditory Disturbances: 0-None Visual Disturbances: 0-None Headache: 0-None Present CIWA-Ar Total Score: 13 [facility] COWS - Scale Resting Pulse: 0= [place] 80 or Below Sweatin= Chills/Flushing Restless Observation: 0= Sits Still Pupil Size: 0= Normal to Room Light Bone or Joint Aches: 2= Severe Diffuse Aches Runny Nose/ Eye Tearin= Nasal Congestion GI Upset > 30mins: 0= None Tremor Observation of Outstretched Hands: 2= Slight Tremor Visible Yawning Observation: 2= >3x During Session Anxiety or Irritability: 2=Irritable/Anxious Goose Flesh Skin: 0=Smooth Skin COWS Score: 10 S Progress Note (SOAP) Subjective: irritable agitation tired sweats Objective: 09/22/18 15:41 Vital Signs Temperature 98.4 F 09/22/18 13:40 Pulse Rate 73 09/22/18 14:58 Respiratory Rate 18 09/22/18 14:00 Blood Pressure 148/84 09/22/18 13:40 O2 Sat by Pulse Oximetry (%) Laboratory Tests 09/22/18 09/22/18 09/22/18 07:00 07:00 07:00 WBC 3.3 L RBC 3.27 L Hgb 11.3 Hct 32.7 MCV 100.2 H MCH 34.6 H MCHC 34.5 RDW 12.3 Plt Count 214 D MPV 10.4 D Sodium 143 Potassium 3.7 Chloride 108 H Carbon Dioxide 28 Anion Gap 7 L BUN 12 Creatinine 0.7 Creat Clearance w eGFR > 60 Random Glucose 90 Calcium 8.6 Total Bilirubin 0.3 AST 65 H ALT 50 Alkaline Phosphatase 117 Total Protein 6.4 Albumin 2.5 L RPR Titer Nonreactive HIV 1&2 Antibody Screen HIV P24 Antigen 09/22/18 07:00 WBC RBC Hgb Hct MCV MCH MCHC RDW Plt Count MPV Sodium Potassium Chloride Carbon Dioxide Anion Gap BUN Creatinine Creat Clearance w eGFR Random Glucose Calcium Total Bilirubin AST ALT Alkaline Phosphatase Total Protein Albumin RPR Titer HIV 1&2 Antibody Screen Negative HIV P24 Antigen Preliminary positive labs noted HIV preliminary positive result noted; confirmatory result pending will contact [facility] for consultation in the am. Assessment: 09/22/18 15:43 withdrawal sx Plan: continue detox increase fluids
[2018-09-22 17:19] VITALS: BP 151/77; TEMP 98.2
[2018-09-22] MEDS: THIAMINE HCL 100 MG TABLET (FP) PO SCH (22:32)
[2018-09-22] MEDS ORDERED: chlordiazePOXIDE HCL 25 MG CAPSULE PO SCH (23:00)
[2018-09-22 23:24] VITALS: PULSE 71
--- NOTE | 2018-09-23 09:32 | PN ---
[facility] Progress Note Note: Pt was no longer on the unit this am d/t overnight issues. [employer] Hatchery Supervisor now is unable to get in contact of pt via phone provided to ask pt to have her come back regarding recent lab results. will try another method.
[2018-09-23] MEDS ORDERED: METHADONE HCL 5 MG TABLET (FOR DETOX USE ONLY) PO ONE (10:00)
[2018-09-23] MEDS ORDERED: METHADONE HCL 5 MG TABLET (FOR DETOX USE ONLY) PO SCH (10:00)
--- NOTE | 2018-09-23 14:10 | PN ---
[facility] Progress Note Note: consultation was made with Snow Alvarado from the [facility] regarding steps to follow to try to reach out to this patient regarding recent lab results. 1. called can be made which it was by tech writer; no answer phone rings then it cuts off or 2. letter can be sent to address on file stating only general statement to get patient back to our facility to discuss abnormal lab results. This was approach was also discussed with Dr. Bergman and also consulted with Sophia Ray and both agreed on the approach. Will follow up with plan.
[2018-09-23] MEDS ORDERED: chlordiazePOXIDE 5 MG CAPSULE PO SCH (23:00)
[2018-09-24] MEDS ORDERED: METHADONE HCL 5 MG TABLET (FOR DETOX USE ONLY) PO ONE (10:00)
[2018-09-24] MEDS ORDERED: chlordiazePOXIDE HCL 10 MG CAPSULE PO SCH (23:00)
[2018-09-25] MEDS ORDERED: METHADONE HCL 10 MG TABLET (FOR DETOX USE ONLY) PO SCH (10:00)
[2018-09-25] MEDS ORDERED: METHADONE HCL 10 MG TABLET (FOR DETOX USE ONLY) PO ONE (10:00)
[2018-09-26] MEDS ORDERED: METHADONE HCL 5 MG TABLET (FOR DETOX USE ONLY) PO ONE (06:00)
[2018-09-26] MEDS ORDERED: METHADONE HCL 5 MG TABLET (FOR DETOX USE ONLY) PO SCH (06:00)
== END 2018-09-22 23:06 | disposition left against medical advice (07) | DRG 770 ==
LOC: YASAS 17:41 → Y6N 20:57 → Y3N 09-22 20:37
PROVIDERS: ADMIT Neuromusculoskeletal Medicine & OMM; ATTEND Neuromusculoskeletal Medicine & OMM
PROC: HZ2ZZZZ Detoxification Services for Substance Abuse Treatment (ICD-10-PCS; principal; 2018-09-21)
DX: F10.230 Alcohol dependence with withdrawal, uncomplicated (principal); F14.20 Cocaine dependence, uncomplicated; F12.20 Cannabis dependence, uncomplicated; F32.9 Major depressive disorder, single episode, unspecified; I10 Essential (primary) hypertension; J45.22 Mild intermittent asthma with status asthmaticus; R75 Inconclusive laboratory evidence of human immunodeficiency virus [HIV]
CPT/HCPCS: 36415; 80053; 85027; 86593; 87389

== ENCOUNTER 2019-04-12 12:51 | Inpatient (IN) | payer OTHER ==
[2019-04-12 15:01] VITALS: BMI 20.9
--- NOTE | 2019-04-12 16:37 | HP ---
COWS - Scale Resting Pulse: 1= [place] 81-100 Sweatin= Chills/Flushing Restless Observation: 1= Difficult to Sit Still Pupil Size: 0= Normal to Room Light Bone or Joint Aches: 2= Severe Diffuse Aches Runny Nose/ Eye Tearin= Nasal Congestion GI Upset > 30mins: 2= Nausea/Diarrhea Tremor Observation: 0= None Yawning Observation: 2= >3x During Session Anxiety or Irritability: 2=Irritable/Anxious Goose Flesh Skin: 0=Smooth Skin COWS Score: 12 CIWA Score - Admission Criteria OAS Guidelines: Admission for Medically Managed Detox: Requires at least one of the followin. CIWA greater than 12 2. Seizures within the past 24 hours 3. Delirium tremens within the past 24 hours 4. Hallucinations within the past 24 hours 5. Acute intervention needed for co occurring medical disorder 6. Acute intervention needed for co occurring psychiatric disorder 7. Severe withdrawal that cannot be handled at a lower level of care (continued vomiting, continued diarrhea, abnormal vital signs) requiring intravenous medication and/or fluids 8. Admission [facility] Chief Complaint: heroin detox and rehab Allergies/Adverse Reactions: Allergies Allergy/AdvReac Type Severity Reaction Status Date / Time No Known Allergies Allergy Verified 04/12/19 14:53 History of Present Illness: Patient is a 57 yo F with a PMHx of HTN, depression, Asthma, crack/cocaine, heroin-use disorder, presented for heroin detox. Heroin use for 25 years. Says she does not inject, only snorts. Last use early this morning at 2am. She says she uses 2 bags of heroine a day. Says she is starting to feel the withdrawals. Was here for detox on 09/21-09/22. She stopped a methadone program 3 years ago in [facility] in [place]. crack/cocaine last use 4am. Live's with mother in a house. - Ebola screening Have you traveled outside of the country in the last 21 days: No Have you had contact with anyone from an Ebola affected area: No Do you have a fever: No - Review of Systems Constitutional: Chills, Loss of Appetite EENT: reports: Nose Congestion Respiratory: denies: Cough, Shortness of Breath Cardiac: denies: Chest Pain, Edema GI: reports: Diarrhea Neuro: reports: No Symptoms reported Patient History - Patient Medical History Hx Asthma: Yes (Not on medication) Hx Chronic Obstructive Pulmonary Disease (COPD): No Hx Cardiac Disorders: No Hx Hypertension: Yes (Not on medication) Hx Seizures: Yes (20 YEARS AGO 2 EPISODES- Not on medication) Hx Dementia: No Hx Diabetes: No Hx Gastrointestinal Disorders: No Hx Liver Disease: No Hx Genitourinary Disorders: No Hx Sexually Transmitted Disorders: No Hx Renal Disease (ESRD): No Hx Thyroid Disease: No Hx Human Immunodeficiency Virus (HIV): No Hx Hepatitis C: No Hx Depression: Yes (Not on medication) Hx Suicide Attempt: No Hx Bipolar Disorder: No Hx Schizophrenia: No - Patient Surgical History Past Surgical History: No Hx Neurologic Surgery: No Hx Cataract Extraction: No Hx Cardiac Surgery: No Hx Lung Surgery: No Hx Breast Surgery: No Hx Breast Biopsy: No Hx Abdominal Surgery: Yes (HERNIA REPAIR 20YRS AGO) Hx Appendectomy: No Hx Cholecystectomy: No Hx Genitourinary Surgery: No Hx Section: No Hx Orthopedic Surgery: No Anesthesia Reaction: No - Reproductive History Last Menstrual Period: 09/24/15 - Smoking Cessation Smoking history: Current every day smoker Have you smoked in the past 12 months: Yes Aproximately how many cigarettes per day: 2 Hx Chewing Tobacco Use: No Initiated information on smoking cessation: Yes 'Breaking Loose' booklet given: 04/12/19 - Substances abused Heroin Substance route: Inhalation Frequency: Daily Amount used: 3-4 bags/day Age of first use: 28 Date of last use: 04/11/19 Cocaine Substance route: Smoking Frequency: 3-6 times per week Amount used: $20 Age of first use: 30 Date of last use: 04/12/19 Family Disease History - Family Disease History Family Disease History: Heart Disease: Mother Admission Physical Exam [facility] - Vital Signs Vital Signs: Vital Signs - 24 hr 04/12/19 04/12/19 04/12/19 14:50 15:47 15:50 Temperature 97.7 F 97.7 F 97.7 F Pulse Rate 83 83 83 Respiratory 16 16 16 Rate Blood Pressure 127/86 127/86 127/86 - Physical General Appearance: Yes: Within Normal Limits HEENTM: Yes: EOMI Respiratory: Yes: Decreased Breath Sounds, No Respiratory Distress, No Accessory Muscle Use Neck: Yes: Supple Cardiology: No: Regular Rate, S1, S2 Genitourinary: No: Within Normal Limits - Diagnostic (1) Asthma Current Visit: No Status: Chronic Qualifiers: Asthma severity: mild Asthma persistence: intermittent Asthma complication type: with status asthmaticus Qualified Code(s): J45.22 - Mild intermittent asthma with status asthmaticus (2) Cocaine dependence, uncomplicated Current Visit: No Status: Chronic (3) Depression Current Visit: No Status: Chronic Qualifiers: Depression Type: unspecified Qualified Code(s): F32.9 - Major depressive disorder, single episode, unspecified Cleared for Admission S - Detox or Rehab [facility] Level of Care: Medically Managed Detox Regimen/Protocol: Methadone Breathalyzer - Breathalyzer Breathalyzer: 0 Urine Drug Screen - Test Device Lot number: [id number] Expiration date: 12/28/20 - Control Is test valid?: Yes - Results Drug screen NEGATIVE: No Urine drug screen results: THC-Marijuana, EBONIE-Cocaine, FEN-Fentanyl, MOP-Opiates , OXY-Oxycodone, BZO-Benzodiazepines Inpatient Rehab Admission - Rehab Decision to Admit Inpatient rehab admission?: No
--- NOTE | 2019-04-12 17:01 | PN ---
Teaching Attending Note Name of Resident: Suzette Sanchez ATTENDING PHYSICIAN STATEMENT I saw and evaluated the patient. I reviewed the resident's note and discussed the case with the resident. I agree with the resident's findings and plan as documented. SUBJECTIVE: 58 yo with h/o HTN, here for heroin detox- using 3 bags/day IH, last use this morning. Was in the ER recently after falling while using alcohol - given BZO. States she only uses alcohol occ, not a problem for her. Her main issue is heroin use OBJECTIVE: Vital Signs - 24 hr 04/12/19 04/12/19 04/12/19 14:50 15:47 15:50 Temperature 97.7 F 97.7 F 97.7 F Pulse Rate 83 83 83 Respiratory 16 16 16 Rate Blood Pressure 127/86 127/86 127/86 alert and oriented ASSESSMENT AND PLAN: admitted for heroin use disorder- methadone detox. pt agrees to continue with methadone based MAT after discharge.
[2019-04-12] MEDS ORDERED: MENTHOL/PHENOL 1 EACH UD MM PRN (17:21)
[2019-04-12] MEDS ORDERED: ACETAMINOPHEN 325 MG TABLET (FP) PO PRN ×2 (17:21)
[2019-04-12] MEDS ORDERED: BISMUTH SUBSALICYLATE 524 MG/30 ML UD PO PRN (17:21)
[2019-04-12] MEDS ORDERED: cloNIDine HCL 0.1 MG TABLET PO PRN (17:21)
[2019-04-12] MEDS ORDERED: MAG HYDROX/AL HYDROX/SIMETH 30 ML UNIT-DOSE CUP PO PRN (17:21)
[2019-04-12] MEDS ORDERED: IBUPROFEN 400 MG TABLET (FP) PO PRN (17:21)
[2019-04-12] MEDS ORDERED: MAGNESIUM CITRATE 300 ML BOTTLE PO PRN (17:21)
[2019-04-12] MEDS ORDERED: MAGNESIUM HYDROX 2400MG/30ML ORAL SUSPENSION 30 ML CUP PO PRN (17:21)
[2019-04-12] MEDS ORDERED: METHADONE HCL 10 MG TABLET (FOR DETOX USE ONLY) PO ONE (18:30)
[2019-04-12] MEDS: THIAMINE HCL 100 MG TABLET (FP) PO SCH (22:24)
[2019-04-12] MEDS: MELATONIN 5 MG TABLETS PO PRN (22:24)
[2019-04-12] MEDS: METHOCARBAMOL 500 MG TABLET PO PRN (22:24)
[2019-04-13] MEDS ORDERED: METHADONE HCL 10 MG TABLET (FOR DETOX USE ONLY) ONE (09:19)
[2019-04-13] MEDS ORDERED: METHADONE HCL 5 MG TABLET (FOR DETOX USE ONLY) ONE (09:19)
[2019-04-13] MEDS ORDERED: METHADONE (DETOX) 20 MG, METHADONE (DETOX) 5 MG PO ONE (10:00)
[2019-04-13 10:07] LABS: ALBUMIN 2.7 g/dl (3.4-5.0); BILIRUBIN,TOTAL 0.5 mg/dL (0.2-1); BLOOD UREA NITROGEN 32.2 mg/dL (7-18); CALCIUM 8.7 mg/dL (8.5-10.1); CREATININE 1.2 mg/dL (0.55-1.3); POTASSIUM 3.9 mmol/L (3.5-5.1); TOT PROT 6.7 g/dl (6.4-8.2)
[2019-04-13] MEDS: PRENATAL VITAMINS W/ FOLIC ACID TABLET (FP) PO SCH (10:09)
[2019-04-13 10:22] LABS: HEMOGLOBIN 10.6 GM/dL (10.7-15.3); MCH 34.9 pg (25.7-33.7); MCHC 34.1 g/dl (32.0-36.0); MEAN CELL VOLUME 102.3 fl (80-96); MEAN PLT VOLUME 11.2 fl (7.5-11.1); PLATELET COUNT 153 K/MM3 (134-434); RBC 3.03 M/mm3 (3.60-5.2); RDW 12.3 % (11.6-15.6); WHITE BLOOD COUNT 3.4 K/mm3 (4.0-10.0)
--- NOTE | 2019-04-13 10:25 | PN ---
[facility] COWS - Scale Resting Pulse: 0= [place] 80 or Below Sweatin= Beads of Sweat on Face Restless Observation: 1= Difficult to Sit Still Pupil Size: 0= Normal to Room Light Bone or Joint Aches: 2= Severe Diffuse Aches Runny Nose/ Eye Tearin= None GI Upset > 30mins: 0= None Tremor Observation of Outstretched Hands: 2= Slight Tremor Visible Yawning Observation: 1= 1-2x During Session Anxiety or Irritability: 2=Irritable/Anxious Goose Flesh Skin: 0=Smooth Skin COWS Score: 11 S Progress Note (SOAP) Subjective: c/o sweats, chills, anxiety, irritability, and shakes. Objective: 04/13/19 10:18 Vital Signs 04/13/19 04/13/19 04/13/19 03:30 07:24 09:40 Temperature 98.1 F 98.0 F Pulse Rate 71 71 Respiratory 18 18 18 Rate Blood Pressure 119/71 125/62 Lab Results Sodium 138 mmol/L (136-145) 04/13/19 07:00 Potassium 3.9 mmol/L (3.5-5.1) 04/13/19 07:00 Chloride 103 mmol/L (98-107) 04/13/19 07:00 Carbon Dioxide 31 mmol/L (21-32) 04/13/19 07:00 Anion Gap 4 MMOL/L (8-16) L 04/13/19 07:00 BUN 32.2 mg/dL (7-18) H 04/13/19 07:00 Creatinine 1.2 mg/dL (0.55-1.3) 04/13/19 07:00 Random Glucose 94 mg/dL (74-106) 04/13/19 07:00 Calcium 8.7 mg/dL (8.5-10.1) 04/13/19 07:00 The rest of lab results pending. Assessment: 04/13/19 10:25 AOX3, in no respiratory distress. Full ROM, ambulating in the unit. Withdrawal symptoms. Plan: continue detox.
--- NOTE | 2019-04-13 12:12 | EKG ---
Test Reason : Blood Pressure : / mmHG Vent. Rate : 078 BPM Atrial Rate : 078 BPM P-R Int : 136 ms QRS Dur : 082 ms QT Int : 458 ms P-R-T Axes : 072 064 077 degrees QTc Int : 522 ms NORMAL SINUS RHYTHM PROLONGED QT ABNORMAL ECG WHEN COMPARED WITH ECG OF 23-JAN-2018 01:12, ST NOW DEPRESSED IN ANTERIOR LEADS T WAVE INVERSION NOW EVIDENT IN ANTERIOR LEADS Confirmed by JESSICA LOPEZ, EVELYNE ([id number]) on 04/13/2019 12:11:42 PM Referred By: JHOANA CAMPBELL Confirmed By:EVELYNE LOPEZ MD
[2019-04-13] MEDS: hydrOXYzine PAMOATE 25 MG CAPSULE (FP) PO PRN (14:34)
[2019-04-13] MEDS: METHOCARBAMOL 500 MG TABLET PO PRN (14:34)
[2019-04-13] MEDS ORDERED: COLLOIDAL OATMEAL 1 BAR EACH TP PRN (15:35)
--- NOTE | 2019-04-13 15:38 | PN ---
[facility] Progress Note Note: pt states she is itching from bathing with the soap in the bathroom. Pt is instructed to stop using the bathroom soap. Aveeno soap prescribed.
[2019-04-13] MEDS: MELATONIN 5 MG TABLETS PO PRN (22:20)
[2019-04-13] MEDS: THIAMINE HCL 100 MG TABLET (FP) PO SCH (22:20)
[2019-04-14] MEDS ORDERED: METHADONE HCL 10 MG TABLET (FOR DETOX USE ONLY) PO ONE (10:00)
[2019-04-14] MEDS: PRENATAL VITAMINS W/ FOLIC ACID TABLET (FP) PO SCH (10:30)
--- NOTE | 2019-04-14 10:57 | PN ---
[facility] COWS - Scale Resting Pulse: 0= [place] 80 or Below Sweatin= Chills/Flushing Restless Observation: 1= Difficult to Sit Still Pupil Size: 0= Normal to Room Light Bone or Joint Aches: 2= Severe Diffuse Aches Runny Nose/ Eye Tearin= None GI Upset > 30mins: 1= Stomach Cramp Tremor Observation of Outstretched Hands: 2= Slight Tremor Visible Yawning Observation: 1= 1-2x During Session Anxiety or Irritability: 2=Irritable/Anxious Goose Flesh Skin: 0=Smooth Skin COWS Score: 10 BHS Progress Note (SOAP) Subjective: c/o stomach cramp, anxiety, irritability, sweats, and tiredness. Objective: 04/14/19 10:58 Vital Signs 04/14/19 04/14/19 04/14/19 03:30 03:36 08:24 Temperature 97.5 F L Pulse Rate 69 Respiratory 18 18 18 Rate Blood Pressure 103/61 04/14/19 09:46 Temperature 99.0 F Pulse Rate 73 Respiratory 18 Rate Blood Pressure 127/70 Lab Results WBC 3.4 K/mm3 (4.0-10.0) L 04/13/19 07:00 RBC 3.03 M/mm3 (3.60-5.2) L 04/13/19 07:00 Hgb 10.6 GM/dL (10.7-15.3) L 04/13/19 07:00 Hct 31.0 % (32.4-45.2) L 04/13/19 07:00 MCV 102.3 fl (80-96) H 04/13/19 07:00 MCHC 34.1 g/dl (32.0-36.0) 04/13/19 07:00 RDW 12.3 % (11.6-15.6) 04/13/19 07:00 Plt Count 153 K/MM3 (134-434) D 04/13/19 07:00 Sodium 138 mmol/L (136-145) 04/13/19 07:00 Potassium 3.9 mmol/L (3.5-5.1) 04/13/19 07:00 Chloride 103 mmol/L (98-107) 04/13/19 07:00 Carbon Dioxide 31 mmol/L (21-32) 04/13/19 07:00 Anion Gap 4 MMOL/L (8-16) L 04/13/19 07:00 BUN 32.2 mg/dL (7-18) H 04/13/19 07:00 Creatinine 1.2 mg/dL (0.55-1.3) 04/13/19 07:00 Random Glucose 94 mg/dL (74-106) 04/13/19 07:00 Calcium 8.7 mg/dL (8.5-10.1) 04/13/19 07:00 Labs noted. Assessment: 04/14/19 10:58 AOX3, in no respiratory distress. Full ROM, ambulating in the unit. withdrawal symptoms. Plan: continue detox.
[2019-04-14] MEDS: hydrOXYzine PAMOATE 25 MG CAPSULE (FP) PO PRN (14:09)
[2019-04-14] MEDS: THIAMINE HCL 100 MG TABLET (FP) PO SCH (22:16)
[2019-04-14] MEDS: MELATONIN 5 MG TABLETS PO PRN (22:17)
[2019-04-15] MEDS ORDERED: METHADONE HCL 10 MG TABLET (FOR DETOX USE ONLY) ONE (08:56)
[2019-04-15] MEDS ORDERED: METHADONE HCL 5 MG TABLET (FOR DETOX USE ONLY) ONE (08:59)
[2019-04-15] MEDS ORDERED: METHADONE (DETOX) 10 MG, METHADONE (DETOX) 5 MG PO ONE (10:00)
[2019-04-15] MEDS: PRENATAL VITAMINS W/ FOLIC ACID TABLET (FP) PO SCH (10:27)
--- NOTE | 2019-04-15 11:52 | PN ---
BHS COWS - Scale Resting Pulse: 0= [place] 80 or Below Sweatin= Beads of Sweat on Face Restless Observation: 1= Difficult to Sit Still Pupil Size: 0= Normal to Room Light Bone or Joint Aches: 2= Severe Diffuse Aches Runny Nose/ Eye Tearin= None GI Upset > 30mins: 0= None Tremor Observation of Outstretched Hands: 0= None Yawning Observation: 1= 1-2x During Session Anxiety or Irritability: 2=Irritable/Anxious Goose Flesh Skin: 0=Smooth Skin COWS Score: 9 BHS Progress Note (SOAP) Subjective: c/o anxiety, irritability, sweats, and tiredness. Objective: 04/15/19 11:50 Vital Signs 04/15/19 04/15/19 06:00 09:49 Temperature 98.4 F 97.5 F L Pulse Rate 78 71 Respiratory 16 18 Rate Blood Pressure 148/79 140/83 Assessment: 04/15/19 11:50 AOX3, in no acute respiratory distress. Full ROM, ambulating in the unit. Withdrawal symptoms. Plan: continue detox.
[2019-04-15] MEDS: METHOCARBAMOL 500 MG TABLET PO PRN (22:16)
[2019-04-15] MEDS: THIAMINE HCL 100 MG TABLET (FP) PO SCH (22:16)
[2019-04-15] MEDS: MELATONIN 5 MG TABLETS PO PRN (22:17)
[2019-04-16] MEDS ORDERED: METHADONE HCL 10 MG TABLET (FOR DETOX USE ONLY) PO ONE (10:00)
[2019-04-16] MEDS: PRENATAL VITAMINS W/ FOLIC ACID TABLET (FP) PO SCH (10:28)
--- NOTE | 2019-04-16 12:16 | PN ---
S COWS - Scale Resting Pulse: 0= [place] 80 or Below Sweatin= No chills or Flushing Restless Observation: 1= Difficult to Sit Still Pupil Size: 0= Normal to Room Light Bone or Joint Aches: 1= Mild Discomfort Runny Nose/ Eye Tearin= None GI Upset > 30mins: 0= None Tremor Observation of Outstretched Hands: 0= None Yawning Observation: 1= 1-2x During Session Anxiety or Irritability: 1=Feels Anxious/Irritable Goose Flesh Skin: 0=Smooth Skin COWS Score: 4 BHS Progress Note (SOAP) Subjective: c/o sweats, tiredness, and anxiety. Objective: 04/16/19 12:16 Lab Results WBC 3.4 K/mm3 (4.0-10.0) L 04/13/19 07:00 RBC 3.03 M/mm3 (3.60-5.2) L 04/13/19 07:00 Hgb 10.6 GM/dL (10.7-15.3) L 04/13/19 07:00 Hct 31.0 % (32.4-45.2) L 04/13/19 07:00 MCV 102.3 fl (80-96) H 04/13/19 07:00 MCHC 34.1 g/dl (32.0-36.0) 04/13/19 07:00 RDW 12.3 % (11.6-15.6) 04/13/19 07:00 Plt Count 153 K/MM3 (134-434) D 04/13/19 07:00 Sodium 138 mmol/L (136-145) 04/13/19 07:00 Potassium 3.9 mmol/L (3.5-5.1) 04/13/19 07:00 Chloride 103 mmol/L (98-107) 04/13/19 07:00 Carbon Dioxide 31 mmol/L (21-32) 04/13/19 07:00 Anion Gap 4 MMOL/L (8-16) L 04/13/19 07:00 BUN 32.2 mg/dL (7-18) H 04/13/19 07:00 Creatinine 1.2 mg/dL (0.55-1.3) 04/13/19 07:00 Random Glucose 94 mg/dL (74-106) 04/13/19 07:00 Calcium 8.7 mg/dL (8.5-10.1) 04/13/19 07:00 Vital Signs 04/16/19 04/16/19 07:37 09:45 Temperature 98.2 F 97.9 F Pulse Rate 73 78 Respiratory 18 16 Rate Blood Pressure 141/84 144/82 Labs noted. Assessment: 04/16/19 12:17 AOX3, in no acute distress. Full ROM, ambulating in the unit. Withdrawal symptoms. For discharge 04/17/19. Plan: continue detox. D/C in AM.
[2019-04-16 13:56] VITALS: BP 129/78; PULSE 59; TEMP 99.1
--- NOTE | 2019-04-16 16:38 | DS ---
[facility] Detox Discharge Summary Admission Date: 04/12/19 Discharge Date: 04/16/19 - History Present History: Cocaine Dependence, Opioid Dependence Pertinent Past History: HTN, asthma, depression - Physical Exam Results Vital Signs: Vital Signs Temperature 99.1 F 04/16/19 13:55 Pulse Rate 59 L 04/16/19 13:55 Respiratory Rate 18 04/16/19 13:55 Blood Pressure 129/78 04/16/19 13:55 O2 Sat by Pulse Oximetry (%) Pertinent Admission Physical Exam Findings: Withdrawal sx Laboratory Last Values WBC 3.4 K/mm3 (4.0-10.0) L 04/13/19 07:00 RBC 3.03 M/mm3 (3.60-5.2) L 04/13/19 07:00 Hgb 10.6 GM/dL (10.7-15.3) L 04/13/19 07:00 Hct 31.0 % (32.4-45.2) L 04/13/19 07:00 MCV 102.3 fl (80-96) H 04/13/19 07:00 MCH 34.9 pg (25.7-33.7) H 04/13/19 07:00 MCHC 34.1 g/dl (32.0-36.0) 04/13/19 07:00 RDW 12.3 % (11.6-15.6) 04/13/19 07:00 Plt Count 153 K/MM3 (134-434) D 04/13/19 07:00 MPV 11.2 fl (7.5-11.1) H 04/13/19 07:00 Sodium 138 mmol/L (136-145) 04/13/19 07:00 Potassium 3.9 mmol/L (3.5-5.1) 04/13/19 07:00 Chloride 103 mmol/L (98-107) 04/13/19 07:00 Carbon Dioxide 31 mmol/L (21-32) 04/13/19 07:00 Anion Gap 4 MMOL/L (8-16) L 04/13/19 07:00 BUN 32.2 mg/dL (7-18) H 04/13/19 07:00 Creatinine 1.2 mg/dL (0.55-1.3) 04/13/19 07:00 Est GFR (CKD-EPI)AfAm 57.69 04/13/19 07:00 Est GFR (CKD-EPI)NonAf 49.78 04/13/19 07:00 Random Glucose 94 mg/dL (74-106) 04/13/19 07:00 Calcium 8.7 mg/dL (8.5-10.1) 04/13/19 07:00 Total Bilirubin 0.5 mg/dL (0.2-1) 04/13/19 07:00 AST 133 U/L (15-37) H 04/13/19 07:00 ALT 96 U/L (13-61) H 04/13/19 07:00 Alkaline Phosphatase 163 U/L (45-117) H 04/13/19 07:00 Total Protein 6.7 g/dl (6.4-8.2) 04/13/19 07:00 Albumin 2.7 g/dl (3.4-5.0) L 04/13/19 07:00 RPR Titer Nonreactive (NONREACTIVE) 04/13/19 07:00 Labs noted - Treatment Hospital Course: Detox Protocol Followed, Detoxed Safely, Responded well, Discharged Condition Good - Medication Discharge Medications: Ambulatory Orders Clonidine HCl 0.3 mg PO DAILY 01/22/18 Albuterol Sulfate Inhaler - [Ventolin HFA Inhaler -] 2 puff IH PRN PRN #1 inhaler 01/26/18 - Diagnosis (1) Asthma Current Visit: No Status: Chronic Qualifiers: Asthma severity: mild Asthma persistence: intermittent Asthma complication type: uncomplicated Qualified Code(s): J45.20 - Mild intermittent asthma, uncomplicated (2) Depression Current Visit: No Status: Chronic Qualifiers: Depression Type: major depressive disorder Major depression recurrence: recurrent Active/Remission status: currently active Major depression episode severity: moderate Qualified Code(s): F33.1 - Major depressive disorder, recurrent, moderate (3) HTN (hypertension) Current Visit: No Status: Chronic Qualifiers: Hypertension type: essential hypertension Qualified Code(s): I10 - Essential (primary) hypertension - AMA Did Patient Leave Against Medical Advice: No (Pt. d/c'd early as per her request. Methadone down to 5mg tomorrow)
[2019-04-17] MEDS ORDERED: METHADONE HCL 5 MG TABLET (FOR DETOX USE ONLY) PO ONE (06:00)
== END 2019-04-16 16:48 | disposition home or self-care (01) | DRG 773 ==
LOC: YASAS 12:51 → Y6N 17:29
PROVIDERS: ADMIT Surgery; ATTEND Surgery
PROC: HZ2ZZZZ Detoxification Services for Substance Abuse Treatment (ICD-10-PCS; principal; 2019-04-12)
DX: F11.23 Opioid dependence with withdrawal (principal); F14.20 Cocaine dependence, uncomplicated; F17.210 Nicotine dependence, cigarettes, uncomplicated; F33.1 Major depressive disorder, recurrent, moderate; Z86.69 Personal history of other diseases of the nervous system and sense organs
CPT/HCPCS: 36415; 80053; 85027; 86480; 86593; 93005; 93010; J0735